=== PATIENT | female | born 1985 | race Caucasian/White ===

== ENCOUNTER 2018-04-04 10:45 | Observation (INO) ==
[2018-04-04] MEDS ORDERED: Isovue-370 500 ML INFUS..BTL IV ONE (11:34)
[2018-04-04] MEDS ORDERED: *HR* FentaNYL (PF) 100 MCG/2 ML VIAL IVP ONE (11:34)
--- NOTE | 2018-04-04 11:37 | Emergency Department Note ---
Disposition Clinical Impression: Acute appendicitis Qualifiers: Acute appendicitis type: with localized peritonitis Appendicitis gangrene presence: without gangrene Appendicitis perforation presence: without perforation Appendicitis abscess presence: without abscess Qualified Code(s): K35.30 - Acute appendicitis with localized peritonitis, without perforation or gangrene Disposition: Admitted As Inpatient Condition: Good Forms: ED Satisfaction Letter, Work/School Release Time of Disposition: 15:35 General Adult HPI - General Chief complaint: ED Abdominal Pain Stated complaint: R/O Appy From [facility] Time Seen by Provider: 04/04/18 11:19 Source: patient Mode of arrival: ambulatory Limitations: no limitations - History of Present Illness HPI Narrative: This is a 32-year-old female who comes to emergency department reporting right lower quadrant abdominal pain that has worsened over the course of the last 30 hours. Vomiting or diarrhea. No dysuria Pain Scale: 8 - Related Data Home Medications Medication Instructions Recorded Confirmed [id number]-[id number] Tablet 06/01/16 Allergies Allergy/AdvReac Type Severity Reaction Status Date / Time No Known Allergies Allergy Verified 04/04/18 10:12 All systems ED: reviewed and negative except as stated. Gastrointestinal: Reports: abdominal pain Past Medical History - Past Medical History Medical history: Reports: non-contributory - Social History Smoking Status: Never smoker Smokeless Tobacco Status: No Alcohol use: Reports: none Drug use: Reports: none Physical Exam - General Limitations: no limitations General appearance: alert, in distress (In mild distress with right lower quadrant pain) - Head Head exam: atraumatic, normocephalic, normal inspection - Eye Eye exam: Present: normal appearance, PERRL, EOMI. Absent: scleral icterus - Chest Chest inspection: Present: normal inspection, symmetric chest wall rise - Respiratory Respiratory exam: Present: normal lung sounds bilaterally - Cardiovascular Cardiovascular exam: Present: regular rate, normal rhythm, normal heart sounds - Abdominal Exam Abdominal exam: Present: soft, tenderness. Absent: distention, guarding, rebo und, rigidity Abdominal tenderness: Present: RLQ, epigastrium, moderate - Back Exam Back exam: Absent: CVA tenderness (R), CVA tenderness (L) - Neurological Exam Neurological exam: Present: alert, oriented X3 - Psychiatric Psychiatric exam: Present: normal affect, normal mood - Skin Skin exam: Present: warm, dry, intact, normal color Course Course Narrative: This is a 32-year-old female with right lower quadrant tenderness concerning for appendicitis or kidney stone. Vital Signs Temperature 98.1 F 04/04/18 11:08 Pulse Rate 94 04/04/18 11:08 Respiratory Rate 18 04/04/18 11:08 Blood Pressure 130/92 04/04/18 11:08 O2 Sat by Pulse Oximetry 98 04/04/18 11:08 Temperature 98.1 F 04/04/18 11:53 Pulse Rate 88 04/04/18 15:31 Respiratory Rate 18 04/04/18 15:31 Blood Pressure 123/83 04/04/18 15:31 O2 Sat by Pulse Oximetry 99 04/04/18 15:31 Oxygen Delivery Oxygen Delivery Room Air Medical Decision Making - MDM Narrative Medical decision making narrative: This is a 32-year-old female who appears to have acute appendicitis I discussed her case with Dr. Delacruz, who saw her in the emergency department and will remove her appendix. Zosyn was ordered for antimicrobial prophylaxis - Lab Data Lab results reviewed: Yes I reviewed the patient's lab results. Lab results narrative: CBC was unremarkable except for thrombocytosis of 404 BMP was unremarkable LFT was unremarkable Lipase was low UA was unremarkable Result diagrams: 04/04/18 12:03 04/04/18 12:03 Lab Results 04/04/18 04/04/18 04/04/18 Range/Units 11:16 11:16 12:03 WBC 7.5 (4.3-11.1) K/mcL RBC 4.75 (3.82-4.97) M/mcL Hgb 14.5 (11.5-15.4) g/dL Hct 42.3 (35.3-44.9) % MCV 89.1 (83.0-100.0) fL MCH 30.5 (28.0-33.3) pg MCHC 34.3 (31.6-35.5) g/dL RDW 12.2 (11.5-14.5) % Plt Count 404 H (140-400) K/mcL MPV 9.5 (9.4-12.4) fL Immature Gran % 0.3 (0-4) % Seg Neutrophils % 66.2 % Lymphocytes % 23.4 % Monocytes % 8.9 % Eosinophils % 0.9 % Basophils % 0.3 % Neutrophils # 5.0 (1.6-8.9) K/mcL Lymphocytes # 1.8 (0.6-4.6) K/mcL Monocytes # 0.7 (0.0-1.3) K/mcL Eosinophils # 0.1 (0.0-0.6) K/mcL Basophils # 0.0 (0.0-0.2) K/mcL Sodium (136-145) mEq/L Potassium (3.5-5.1) mEq/L Chloride (98-107) mEq/L Carbon Dioxide (23-29) mEq/L BUN (6-20) mg/dL Creatinine (0.60-1.20) mg/dL Est GFR ( Amer) (> 60) Est GFR (Non-Af Amer) (> 60) BUN/Creatinine Ratio (6-26) Glucose (70-105) mg/dL Calculated Osmolality (280-300) Calcium (8.6-10.3) mg/dL Total Bilirubin (0.3-1.0) mg/dL Direct Bilirubin (0.0-0.2) mg/dL Indirect Bilirubin (0.0-1.2) mg/dL AST (13-39) Units/L ALT (7-52) Units/L Alkaline Phosphatase (34-104) Units/L Serum Total Protein (6.4-8.9) g/dL Albumin (3.5-5.7) g/dL Globulin (2.4-3.5) g/dL Albumin/Globulin Ratio (1.1-2.2) Lipase (11-82) Units/L Urine Color Yellow (Yellow) Urine Clarity Clear (Clear) Urine pH 6.5 (5.0-8.0) pH Units Ur Specific [place] 1.029 H (1.010-1.025) Urine Protein Negative (Neg-Trace) mg/dL Urine Glucose (UA) Normal (Normal) mg/dL Urine Ketones Negative (Negative) mg/dL Urine Blood Trace H (Negative) Urine Nitrite Negative (Negative) Urine Bilirubin Negative (Negative) Urine Urobilinogen Normal (Normal) mg/dL Ur Leukocyte Esterase Negative (Negative) Urine Microscopic RBC 3-5 H (0-3) per hpf Urine Microscopic WBC 0-3 (0-3) per hpf Ur Squamous Epith Cells Many H (None-Few) per lpf Urine Bacteria None Seen (None-Few) per hpf Hyaline Casts None Seen (None-Few) per lpf Ur Culture Indicated? NO (NO) Urine Test Negative (Negative) 04/04/18 Range/Units 12:03 WBC (4.3-11.1) K/mcL RBC (3.82-4.97) M/mcL Hgb (11.5-15.4) g/dL Hct (35.3-44.9) % MCV (83.0-100.0) fL MCH (28.0-33.3) pg MCHC (31.6-35.5) g/dL RDW (11.5-14.5) % Plt Count (140-400) K/mcL MPV (9.4-12.4) fL Immature Gran % (0-4) % Seg Neutrophils % % Lymphocytes % % Monocytes % % Eosinophils % % Basophils % % Neutrophils # (1.6-8.9) K/mcL Lymphocytes # (0.6-4.6) K/mcL Monocytes # (0.0-1.3) K/mcL Eosinophils # (0.0-0.6) K/mcL Basophils # (0.0-0.2) K/mcL Sodium 137 (136-145) mEq/L Potassium 3.9 (3.5-5.1) mEq/L Chloride 102 (98-107) mEq/L Carbon Dioxide 26 (23-29) mEq/L BUN 9 (6-20) mg/dL Creatinine 0.78 (0.60-1.20) mg/dL Est GFR ( Amer) > 60 (> 60) Est GFR (Non-Af Amer) > 60 (> 60) BUN/Creatinine Ratio 12 (6-26) Glucose 86 (70-105) mg/dL Calculated Osmolality 282 (280-300) Calcium 9.5 (8.6-10.3) mg/dL Total Bilirubin 0.5 (0.3-1.0) mg/dL Direct Bilirubin 0.1 (0.0-0.2) mg/dL Indirect Bilirubin 0.4 (0.0-1.2) mg/dL AST 19 (13-39) Units/L ALT 21 (7-52) Units/L Alkaline Phosphatase 108 H (34-104) Units/L Serum Total Protein 7.5 (6.4-8.9) g/dL Albumin 4.1 (3.5-5.7) g/dL Globulin 3.4 (2.4-3.5) g/dL Albumin/Globulin Ratio 1.2 (1.1-2.2) Lipase 7 L (11-82) Units/L Urine Color (Yellow) Urine Clarity (Clear) Urine pH (5.0-8.0) pH Units Ur Specific [place] (1.010-1.025) Urine Protein (Neg-Trace) mg/dL Urine Glucose (UA) (Normal) mg/dL Urine Ketones (Negative) mg/dL Urine Blood (Negative) Urine Nitrite (Negative) Urine Bilirubin (Negative) Urine Urobilinogen (Normal) mg/dL Ur Leukocyte Esterase (Negative) Urine Microscopic RBC (0-3) per hpf Urine Microscopic WBC (0-3) per hpf Ur Squamous Epith Cells (None-Few) per lpf Urine Bacteria (None-Few) per hpf Hyaline Casts (None-Few) per lpf Ur Culture Indicated? (NO) Urine Test (Negative) - Radiology Data Radiology results reviewed: Yes I reviewed the patient's radiology results. Radiology called to say that the patient has a enlarged inflamed proximal appendix concerning for early acute appendicitis Critical Care Time Critical Care Time: No
[2018-04-04 11:49] LABS: Bilirubin,Urine Negative (Negative); Blood,Urine Trace (Negative); Clarity,Urine Clear (Clear); Color,Urine Yellow (Yellow); Glucose,Urine (UA) Normal (Normal); Ketones,Urine Negative (Negative); Leukocyte Esterase,Urine Negative (Negative); Nitrite,Urine Negative (Negative); PH,Urine 6.5 pH Units (5.0-8.0); Protein,Urine Negative (Neg-Trace); Specific Gravity,Urine 1.029 (1.010-1.025); Urobilinogen,Urine Normal (Normal)
[2018-04-04 11:54] LABS: Bacteria,Urine None Seen per hpf (None-Few); Hyaline Casts,Urine None Seen per lpf (None-Few); Squamous Epithelial Cell,Urine Many per lpf (None-Few); WBC,Urine 0-3 per hpf (0-3)
[2018-04-04 12:14] LABS: Basophils % 0.3 %; Eosinophils # 0.1 K/mcL (0.0-0.6); Eosinophils % 0.9 %; Hematocrit 42.3 % (35.3-44.9); Hemoglobin 14.5 g/dL (11.5-15.4); Immature Granulocytes % 0.3 % (0-4); Lymphocytes # 1.8 K/mcL (0.6-4.6); Lymphocytes % 23.4 %; Mean Corpuscular HGB Conc 34.3 g/dL (31.6-35.5); Mean Corpuscular Hemoglobin 30.5 pg (28.0-33.3); Mean Corpuscular Volume 89.1 fL (83.0-100.0); Mean Platelet Volume 9.5 fL (9.4-12.4); Monocytes # 0.7 K/mcL (0.0-1.3); Monocytes % 8.9 %; Platelet Count 404 K/mcL (140-400); Red Blood Count 4.75 M/mcL (3.82-4.97); Red Cell Distribution Width 12.2 % (11.5-14.5); Segmented Neutrophils % 66.2 %
[2018-04-04 12:34] LABS: Alanine Aminotransferase 21 Units/L (7-52); Albumin 4.1 g/dL (3.5-5.7); Albumin/Globulin Ratio 1.2 (1.1-2.2); Alkaline Phosphatase 108 Units/L (34-104); Aspartate Amino Transferase 19 Units/L (13-39); BUN/Creatinine Ratio 12 (6-26); Bilirubin,Direct 0.1 mg/dL (0.0-0.2); Bilirubin,Indirect 0.4 mg/dL (0.0-1.2); Bilirubin,Total 0.5 mg/dL (0.3-1.0); Blood Urea Nitrogen 9 mg/dL (6-20); Calcium 9.5 mg/dL (8.6-10.3); Carbon Dioxide 26 mEq/L (23-29); Chloride 102 mEq/L (98-107); Globulin 3.4 g/dL (2.4-3.5); Glucose 86 mg/dL (70-105); Lipase 7 Units/L (11-82); Osmolality,Calculated 282 (280-300); Potassium 3.9 mEq/L (3.5-5.1); Sodium 137 mEq/L (136-145); Total Protein 7.5 g/dL (6.4-8.9); eGFR For Non-African Americans > 60 (> 60)
[2018-04-04] MEDS ORDERED: Piperacillin/Tazobactam 3.375 GM in Water for inj. (sterile) 20 ML 20 ML IVP ONE (13:36)
[2018-04-04] MEDS ORDERED: Ringers Solution, Lactated 1,000 ML ONE (15:07)
[2018-04-04] MEDS ORDERED: Ringers Solution, Lactated 1,000 ML IVC SCH (15:10)
--- NOTE | 2018-04-04 15:20 | General Surg History&Physical ---
Date of Encounter: 04/04/18 Time of Encounter: 14:50 History of Present Illness Chief complaint: Acute right lower quadrant abdominal pain, acute appendicitis HPI: Ms. Pearson is a 32 year old female referred for further surgical evaluation after presenting to the emergency department with approximately a 24-hour history of progressive right lower quadrant abdominal pain. The patient denies any nausea or vomiting, just worsening right lower quadrant abdominal pain. White count was unremarkable at 7.5 with a hemoglobin of 14.5 and hematocrit 43.2. Platelet count 404,000. Differential was unremarkable as were electrolytes, BUN, and creatinine. LFTs notable for an elevated alkaline phosphatase 108 otherwise unremarkable. Urinalysis was notable for a specific gravity 1.029 with trace blood. Microscopic showing 3-5 RBCs per high-powered field, 0-3 white cells per high-powered field. CT abdomen/pelvis demonstrates inflammatory changes at the base of the cecum with mild thickening of the proximal appendix. The distal portion of the appendix appeared normal. There is mild stranding of the fat adjacent to the appendix consistent with early acute appendicitis. Past medical history: Unremarkable Allergies: No known drug allergies Medications: control pills otherwise no routine home meds Social history: Patient is , lives with her spouse and 2 children; G2, P2; children ages 5 and 9. The patient does not smoke, never has. The patient admits to rare alcoholic beverage. The patient denies any illicit drug use. Family history: Mother with stage IV breast cancer, diagnosed at 64 Father with diabetes and heart disease Physical examination: Age-appropriate, overweight female resting comfortably in her ED bed. She does not appear to be in acute distress. The patient is 1.57 m tall, 94.71 kg, BMI 38.2. The patient has been a febrile at 98.1, pulse 94 and regular, respirations 18, blood pressure 130/92. Skin: Warm, no obvious jaundice Lungs: Clear to auscultation; no abdominal pain on deep inspiration Cardiac: Regular rate, no appreciable murmurs Abdomen: Soft with acute tenderness in the right lower quadrant. Minimal referred pain to the right lower quadrant when the left lower quadrant is palpated. No obvious rebound or peritoneal signs. Bowel sounds were hypoactive Extremities: No obvious clubbing, cyanosis, or edema. Impression: 32-year-old female with 24-hour history of progressive right lower quadrant abdominal pain. Examination and CT abdomen/pelvis are consistent with early acute appendicitis. Treatment options include hospital admission with IV antibiotics versus surgery. The patient wishes to proceed with surgery. Risks of surgery include hemorrhage, infection, intra-abdominal abscess, injury to adjacent organs such as bowel, bladder, and ureters. We also discussed potential removal of a normal appendix if a normal appendix is encountered. The patient expressed understanding and wishes to proceed with surgery. The patient is a reasonable candidate for laparoscopic appendectomy but understands an open appendectomy may become necessary. Surgical consent has been obtained. The surgical team has been notified. We will proceed with appendectomy today. Past Med Surg Social Fam HX - Past Medical History Medical history: no medical history Psychiatric history: no psych history - Social History Smoking Status: Never smoker Smokeless Tobacco Status: No Alcohol use: none Drug use: none Medications and Allergies Zahraa-[id number] Tablet 06/01/16 [History] Allergy/AdvReac Type Severity Reaction Status Date / Time No Known Allergies Allergy Verified 04/04/18 10:12 Review of Systems All systems PM: The remainder of the systems were reviewed and are negative General Surgery Exam Initial Vital Signs Temp Pulse Resp BP Pulse Ox 98.1 F 94 18 130/92 98 04/04/18 11:08 04/04/18 11:08 04/04/18 11:08 04/04/18 11:08 04/04/18 11:08 Results - Labs 04/04/18 12:03 04/04/18 12:03 Abnormal lab results Plt Count 404 K/mcL (140-400) H 04/04/18 12:03 Alkaline Phosphatase 108 Units/L (34-104) H 04/04/18 12:03 Lipase 7 Units/L (11-82) L 04/04/18 12:03 Ur Specific [place] 1.029 (1.010-1.025) H 04/04/18 11:16 Urine Blood Trace (Negative) H 04/04/18 11:16 Urine Microscopic RBC 3-5 per hpf (0-3) H 04/04/18 11:16 Ur Squamous Epith Cells Many per lpf (None-Few) H 04/04/18 11:16 Diabetes panel 04/04/18 Range/Units 12:03 Sodium 137 (136-145) mEq/L Potassium 3.9 (3.5-5.1) mEq/L Chloride 102 (98-107) mEq/L Carbon Dioxide 26 (23-29) mEq/L BUN 9 (6-20) mg/dL Creatinine 0.78 (0.60-1.20) mg/dL Glucose 86 (70-105) mg/dL Calcium 9.5 (8.6-10.3) mg/dL AST 19 (13-39) Units/L ALT 21 (7-52) Units/L Alkaline Phosphatase 108 H (34-104) Units/L Albumin 4.1 (3.5-5.7) g/dL Calcium panel 04/04/18 Range/Units 12:03 Calcium 9.5 (8.6-10.3) mg/dL Albumin 4.1 (3.5-5.7) g/dL Pituitary panel 04/04/18 Range/Units 12:03 Sodium 137 (136-145) mEq/L Potassium 3.9 (3.5-5.1) mEq/L Chloride 102 (98-107) mEq/L Carbon Dioxide 26 (23-29) mEq/L BUN 9 (6-20) mg/dL Creatinine 0.78 (0.60-1.20) mg/dL Glucose 86 (70-105) mg/dL Calcium 9.5 (8.6-10.3) mg/dL Adrenal panel 04/04/18 Range/Units 12:03 Sodium 137 (136-145) mEq/L Potassium 3.9 (3.5-5.1) mEq/L Chloride 102 (98-107) mEq/L Carbon Dioxide 26 (23-29) mEq/L BUN 9 (6-20) mg/dL Creatinine 0.78 (0.60-1.20) mg/dL Glucose 86 (70-105) mg/dL Calcium 9.5 (8.6-10.3) mg/dL Total Bilirubin 0.5 (0.3-1.0) mg/dL AST 19 (13-39) Units/L ALT 21 (7-52) Units/L Alkaline Phosphatase 108 H (34-104) Units/L Albumin 4.1 (3.5-5.7) g/dL All other labs normal.
[2018-04-04] MEDS ORDERED: Lidocaine -MPF 4% 5 ML AMPUL ONE (16:00)
[2018-04-04] MEDS ORDERED: *HR* Succinylcholine 200 MG/10 ML VIAL IVP ONE (16:00)
[2018-04-04] MEDS ORDERED: Lidocaine -MPF 2% 2 ML VIAL ONE (16:00)
[2018-04-04] MEDS ORDERED: *HR* FentaNYL (PF) 100 MCG/2 ML VIAL ONE ×2 (16:01→17:49)
[2018-04-04] MEDS ORDERED: *HR* Midazolam HCl 2 MG/2 ML VIAL ONE (16:01)
[2018-04-04] MEDS ORDERED: *HR* Propofol 200 MG/20 ML VIAL IVP ONE (16:01)
--- NOTE | 2018-04-04 16:35 | Anesthesia Evaluation PreOp ---
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 Any Significant HX Other Medical History: Denies Any Significant HX Anesthesia History: No Prior Anesthetic Complications, Past Anesthesia (L- shoulder), Problems (PONV) Alcohol Use: none Drug use: none Medications and Allergies Zahraa-28 Tablet 06/01/16 [History] Levonorgestrel-Ethin Estradiol [Kurvelo Tablet] 1 tab PO HS 04/04/18 [History] Allergy/AdvReac Type Severity Reaction Status Date / Time No Known Allergies Allergy Verified 04/04/18 15:46 - Meds/Allergy Pre-op Review Medications Reviewed: Yes Allergies Reviewed: Yes Beta Blockers on Current Med List: No Anesthesia Results - Labs 04/04/18 12:03 04/04/18 12:03 Laboratory Results Impressions Abdomen/Pelvis CT 04/04/18 11:34 IMPRESSION: Findings suggest early acute uncomplicated appendicitis. Findings were discussed with Gerson Cabrera at 1:17 pm on 04/04/2018. D/ / 04/04/2018 13:22:30 Albaro Leone MD / guerrero Interpreting Provider: Albaro Leone MD Anesthesia Exam Vital Signs Temp Pulse Resp BP Pulse Ox 04/04/18 15:31 88 18 123/83 99 04/04/18 15:00 97 18 118/81 99 04/04/18 11:53 98.1 F 94 18 130/92 98 04/04/18 11:08 98.1 F 94 18 130/92 98 Intake and Output Patient Weight 04/04/18 23:59 Weight 94.71 kg Height: 5'2" Weight: 208# BMI= 38 NPO (# of Hours): MNoc Pain Scale Used: Numeric (1 - 10) - HEENT Pupil (Motor): Pupils equal, EOMI Mallampati: II Teeth: Normal Oral Opening: Greater than 3 - SLABBING MACHINE OPERATOR LOC: Oriented SLABBING MACHINE OPERATOR Motor: Normal RUE, Normal LUE, Normal RLE, Normal LLE, Normal Face SLABBING MACHINE OPERATOR Sensory: Normal: RUE, LUE, RLE, LLE, Face - Cardiac Rhythm: Regular Murmur: None - Pulmonary Breath Sounds: bilateral Clear Respiratory Effort: Symmetrical Anesthesia Assess/Plan ASA Score: 2, E Modified Donte Scale for Level of Consciousness: Cooperative, oriented, and tranquil Anesthetic Plan: General Monitoring Plan: Standard Monitors Recovery Plan: PACU Anes Supervising Prov Stmt: PT seen/evaluated, R&B Discussed questions answered and consent obtained. Michoacano Hicks MD
[2018-04-04] MEDS ORDERED: Bupivacaine/EPI 1:200k 0.25%PF 30 ML VIAL ONE (16:50)
[2018-04-04] MEDS ORDERED: Famotidine 20 MG/2 ML VIAL ONE (16:53)
[2018-04-04] MEDS ORDERED: Acetaminophen IV 1,000 MG/100 ML INFUS..BTL ONE (16:53)
[2018-04-04] MEDS ORDERED: *HR* Magnesium Sulfate 1 GM/2 ML VIAL ONE (17:42)
[2018-04-04] MEDS ORDERED: Ketorolac 30 MG/ML VIAL ONE (17:49)
[2018-04-04] MEDS ORDERED: *HR* Rocuronium Bromide 50 MG/5 ML VIAL ONE (17:50)
[2018-04-04] MEDS ORDERED: Neostigmine Methylsulfate 3 MG/3 ML SYRINGE ONE (18:15)
[2018-04-04] MEDS ORDERED: Ondansetron 4 MG/2 ML VIAL ONE (18:22)
[2018-04-04] MEDS ORDERED: Dexamethasone 4 MG/ML VIAL ONE (18:22)
--- NOTE | 2018-04-04 18:37 | Operative Note ---
Date of procedure: 04/04/18 Pre-op diagnosis: acute appendicitis Post-op diagnosis: same Procedure: Laparoscopic appendectomy with excision paraovarian cyst Implants: None Complications: None apparent Anesthesia: GETA Local Anesthetics: 0.25% Sensorcaine HCL with Epinephrine 1:200,000 SubQ (cc) (30 mL) Surgeon: Ney Waite Was there an assistant field hockey coach present: No Estimated blood loss (cc): 30 IV fluids (cc): 1,000 Specimen: appendix and right paraovarian cyst Condition: stable Disposition: PACU Procedure in Detail: The patient was brought to the operating room where she was placed supine on the procedure table. The patient was appropriately identified as to person and procedure. The accuracy of this information was confirmed by the patient procedure team. The patient was then intubated and anesthetized under the supervision of Dr. Viviana Urbina. The abdomen was examined under anesthesia with no palpable masses detected The abdomen was prepped and draped in usual sterile fashion. Several milliliters of 0.25% bupivacaine with 1-200,000 units epinephrine was infiltrated into the infraumbilical skin. A small transverse incision was made and extended to the fascia. The fascia was grasped and elevated before additional bupivacaine with 1-200,000 units epinephrine was infiltrated into the fascia. The fascia was then incised. An 11 mm Xcel port was established. The rigid laparoscope was placed within the obturator to visualize passage through the layers of the anterior abdominal wall. When the abdominal cavity was accessed, the obturator was replaced by the rigid laparoscope, the abdomen was insufflated with gaseous carbon dioxide. There was no obvious visible injury from establishing the port. Under direct visualization, a 5 mm port was placed in the suprapubic midline and a 12 mm port established in left lower quadrant midclavicular line. Each site was infiltrated with the bupivacaine with epinephrine solution. The cecum was ident ified and elevated. An acutely inflamed appendix was identified. The mesoappendix was dissected with [place] dissectors. The appendix was transected at its junction with the cecum using an Ethicon ATS 45 mm stapler, blue cartridge. The the rest of the mesoappendix was transected with the Ethicon ATS 45 mm stapler using a vascular cartridge. When the appendix was from the surrounding structures it was placed in an endoscopic pouch and extracted through the infraumbilical opening. A small amount blood had collected in the right paracolic gutter related to the dissection of the a ppendix and the mesoappendix. A small, 3 mm parovarian cyst was identified on a relatively long stalk attached to the right ovary. This stalk was transected with Ethicon harmonic beena. The parovarian cyst was extracted through the 12 mm port and sent to pathology along with the appendix. The staple lines were inspected and found to be intact. Hemostasis was deemed adequate. The pneumoperitoneum was evacuated and the endoscopic instrumentation removed. Additional bupivacaine with 1 200,000 units epinephrine was infiltrated into the port sites. A total of 30 mL was was used during this procedure. The fascia of the infraumbilical opening was closed with interrupted [id number] 0 Vicryl using S retractors. The skin edges of the port sites were then approximated with subcuticular 4-0 Vicryl. The incisions were sealed with Dermabond dermal adhesive. The patient was taken to PACU in stable condition. Needle, sponge, and instrument counts were correct at the close of the case.
[2018-04-04] MEDS ORDERED: Ringers Solution, Lactated 500 ML IVC ONE (18:42)
[2018-04-04] MEDS ORDERED: Ondansetron 4 MG/2 ML VIAL IVP PRN ×2 (18:54→20:42)
[2018-04-04] MEDS: *HR* HYDROmorphone (PF) 1 MG/ML SYRINGE IVP PRN ×2 (19:12→19:22)
--- NOTE | 2018-04-04 19:38 | Anesthesia Evaluation Post Op ---
Date of Encounter: 04/04/18 Time of Encounter: 19:37 - Vital Signs Vital Signs: Vital Signs/O2 Sat, Most Current Temp Pulse Resp BP Pulse Ox 98.1 F 74 16 111/68 98 04/04/18 19:08 04/04/18 19:28 04/04/18 19:28 04/04/18 19:28 04/04/18 19:28 - Lungs Lungs: Clear Ascult./Percussion - Airway Airway: Non-obstructed - Cardiovascular Regular Rate - Mental Status Mental Status: Alert & Oriented, Answers Appropriately - Pain Pain Scale: 0 Pain Scale used: Numeric (1 - 10) - Nausea Vomiting Nausea Vomiting: Not Present - Hydration Hydration: Tolerates oral liquids - Discharge PostOp Status: Transfer Patient to floor
[2018-04-04] MEDS: Ringers Solution, Lactated 1,000 ML IVC SCH (21:12)
[2018-04-05] MEDS: *HR* OxyCODONE Immed Rel 5 MG TABLET PO PRN ×2 (01:12→08:19)
[2018-04-05 04:39] LABS: Basophils % 0.1 %; Hematocrit 38.6 % (35.3-44.9); Immature Granulocytes % 0.5 % (0-4); Lymphocytes # 0.7 K/mcL (0.6-4.6); Lymphocytes % 7.8 %; Mean Corpuscular HGB Conc 33.7 g/dL (31.6-35.5); Mean Corpuscular Hemoglobin 30.1 pg (28.0-33.3); Mean Corpuscular Volume 89.4 fL (83.0-100.0); Mean Platelet Volume 9.5 fL (9.4-12.4); Monocytes # 0.1 K/mcL (0.0-1.3); Monocytes % 1.5 %; Neutrophils # 8.4 K/mcL (1.6-8.9); Platelet Count 404 K/mcL (140-400); Red Blood Count 4.32 M/mcL (3.82-4.97); Red Cell Distribution Width 12.1 % (11.5-14.5); Segmented Neutrophils % 90.1 %
[2018-04-05] MEDS: Ringers Solution, Lactated 1,000 ML IVC SCH ×2 (08:05→22:43)
--- NOTE | 2018-04-05 13:16 | General Surgery Progress Note ---
Date of Encounter: 04/05/18 Time of Encounter: 13:11 Subjective Narrative: General Surgery - POD #1 Patient complaining of right-sided "rib pain". Preoperative symptoms resolved. No nausea or vomiting. Patient remains afebrile, 97.6, pulse 82, respirations 16, blood pressure stable at 108/75. SPO2 on room air 96% Lungs: Clear with no pain on deep inspiration Cardiac: Regular rate, no appreciable murmur Abdomen: Tender at the infraumbilical port site. No right upper quadrant tenderness despite the patient's complaints of right-sided "rib pain" Port sites appear to be intact though ecchymosis is noted around all 3 sites. Active bowel sounds. Patient is tolerating diet without nausea vomiting though complaining of anorexia Postop labs: White count 9.4, hemoglobin 13.0, hematocrit 38.6. Platelet count stable at 404,000. Differential within normal limits Impression: Postoperative day #1, status post laparoscopic appendectomy for acute appendicitis Postoperative right sided upper abdominal/"rib pain" - most likely due to intraoperative insufflation with diaphragmatic irritation. Patient requiring oxycodone 10 mg every 6 hours as needed for pain. Preoperative symptoms have resolved. Plan: Continue to monitor for resolution of her right upper abdominal pain. Allow regular diet Encourage activity abdomen Objective Vital Signs - Last 8 Hours Temp Pulse Resp BP Pulse Ox 04/05/18 11:12 97.6 F 82 16 108/75 96 04/05/18 06:49 98 F 76 16 109/68 98 Intake and Output 04/04/18 04/05/18 04/05/18 23:59 07:59 15:59 Intake Total 1000 / 1000 120 / 120 1600 / 1600 Output Total 530 / 530 900 / 900 Balance 470 / 470 -780 / -780 1600 / 1600 Intake: IV Fluids 1000 / 1000 1000 / 1000 Lactated Ringers 1,000 ML @ 75 1000 / 1000 1000 / 1000 mls/hr IVC .[id number] HELLEN Rx#: [id number] Oral 120 / 120 600 / 600 Output: Urine 500 / 500 900 / 900 Estimated Blood Loss 30 / 30 Other: Meal Breakfast Percent of Meal Consumed 60% Weight 94.1 kg 93.4 kg Patient Weight 04/05/18 23:59 Weight 93.4 kg - Labs 04/05/18 03:49 04/04/18 12:03 Consult Discharge Plan - Plan Referrals: Colopy,Sunday R, DO [Primary Care Provider] - (Please call office when you arrive home to schedule follow up appointment for 7-10 days from date of discharge. )
[2018-04-05] MEDS: Acetaminophen 325 MG TABLET PO PRN ×2 (15:43→22:44)
[2018-04-05] MEDS: *HR* OxyCODONE/APAP 5/325 TABLET PO PRN (16:54)
[2018-04-06] MEDS: *HR* OxyCODONE/APAP 5/325 TABLET PO PRN ×2 (03:44→11:36)
[2018-04-06 06:40] VITALS: BP 106/69
[2018-04-06] MEDS: Acetaminophen 325 MG TABLET PO PRN (09:02)
--- NOTE | 2018-04-06 14:07 | General Surgery Progress Note ---
Date of Encounter: 04/06/18 Time of Encounter: 14:02 Subjective Patient reports: feels better, pain is less, tolerating a regular diet Narrative: General Surgery - POD #2 Patient feeling better; still complaining of right-sided abdominal pain but it is significantly improved. The patient has remained afebrile, 98.0; hemodynamically stable: heart rate of 88, respirations 16, blood pressure 106/69. SPO2 on room air 95-96%. Lungs: Clear; no abdominal pain on deep inspiration Abdomen: Soft with active bowel sounds. Minimal infraumbilical tenderness. Port sites intact and healing well. Ecchymoses around the port sites related to intraoperative administration of bupivacaine with epinephrine are stable. No erythema, cellulitis or drainage detected. Patient is tolerating a regular diet Pathology: Pending Impression: Postoperative day #2, status post laparoscopic appendectomy for acute appendicitis. Acceptable postoperative status. Discharge home. Instructions: patient may consume a regular diet Activity as tolerated, lifting limited to less than 20. Patient may shower, wash incisions with soap and water Tylenol, ibuprofen, Motrin, Advil etc. as needed for pain Prescription for Percocet 5/325, #8, one every 6 hours as needed for pain not relieved by [id number] medication Postoperative follow-up in the office, 04/09/18. Patient to call office on to make this appointment Objective Vital Signs - Last 8 Hours Temp Pulse Resp BP Pulse Ox 04/06/18 10:42 98.0 F 88 16 95 04/06/18 06:36 97.9 F 78 14 106/69 96 Intake and Output 04/05/18 04/06/18 04/06/18 23:59 07:59 15:59 Intake Total 1600 / 1600 1680 / 1680 Output Total 800 / 800 450 / 450 Balance 800 / 800 -450 / -450 1680 / 1680 Intake: IV Fluids 1000 / 1000 Lactated Ringers 1,000 ML @ 75 1000 / 1000 mls/hr IVC .[id number] HELLEN Rx#: [id number] Oral 600 / 600 1680 / 1680 Output: Urine 800 / 800 450 / 450 Other: Meal Lunch Percent of Meal Consumed 100% Weight 96 kg Patient Weight 04/06/18 23:59 Weight 96 kg - Labs 04/05/18 03:49 04/04/18 12:03 Consult Discharge Plan - Plan Referrals: ColSunday montero, DO [Primary Care Provider] - (Please call office when you arrive home to schedule follow up appointment for 7-10 days from date of discharge. )
--- NOTE | 2018-04-06 14:12 | Discharge Summary ---
Outpatient Proc Discharge Plan - Plan Additional Instructions: patient may consume a regular diet Activity as tolerated, lifting limited to less than 20. Patient may shower, wash incisions with soap and water Tylenol, ibuprofen, Motrin, Advil etc. as needed for pain Prescription for Percocet 5/325, #8, one every 6 hours as needed for pain not relieved by [id number] medication Postoperative follow-up in the office, 04/09/18. Patient to call office on to make this appointment Prescriptions: OxyCODONE/APAP 5/325 [Percocet 5/325 MG] 1 each PO Q6-8H PRN 2 Days #8 tablet PRN Reason: Pain Home Medications: [id number] Tablet 06/01/16 [History] Levonorgestrel-Ethin Estradiol [Kurvelo Tablet] 1 tab PO HS 04/04/18 [History] Acetaminophen [Tylenol] 650 mg PO Q6HR PRN tablet 04/06/18 [Rx] OxyCODONE/APAP 5/325 [Percocet 5/325 MG] 1 each PO Q6-8H PRN 2 Days #8 tablet 04/06/18 [Rx]
== END 2018-04-06 14:40 | disposition home or self-care (01) ==
LOC: EMEROOARM 10:45 → 3BNU 10:45
PROVIDERS: ADMIT Surgery; ATTEND Surgery